=== PATIENT | female | born 1965 | race Hispanic/Latino ===

== ENCOUNTER 2025-05-18 18:18 | Emergency (ER) | payer SELFPAY ==
[2025-05-18] MEDS ORDERED: HYDROcodone/Acetaminophen 5/325 mg Tablet ONE (19:24)
[2025-05-18] MEDS ORDERED: Ondansetron PF 4 MG/2 ML Vial ONE (19:33)
[2025-05-18] MEDS ORDERED: Lidocaine 1% w/Epinephrine 1:100K 20 ML VIAL ONE (20:47)
[2025-05-18] MEDS ORDERED: Lidocaine/Transparent Dressing 1 EACH KIT ONE (21:03)
[2025-05-18] MEDS ORDERED: Boostrix 0.5 ML (Tdap) VIAL (>/=7 yrs of age) ONE (22:14)
== END 2025-05-18 23:00 | disposition home or self-care (01) ==
LOC: ERS 18:18
DX: S92.321A Displaced fracture of second metatarsal bone, right foot, initial encounter for closed fracture (principal); S92.332A Displaced fracture of third metatarsal bone, left foot, initial encounter for closed fracture; S01.111A Laceration without foreign body of right eyelid and periocular area, initial encounter; M25.531 Pain in right wrist; I10 Essential (primary) hypertension; W01.0XXA Fall on same level from slipping, tripping and stumbling without subsequent striking against object, initial encounter; Z23 Encounter for immunization; Z79.899 Other long term (current) drug therapy
CPT/HCPCS: 12013; 29105; 29515; 70450; 70486; 72125; 90471; 90715; 96374; 96375; J2270; J2405

== ENCOUNTER 2025-05-30 13:18 | Emergency (ER) | payer SELFPAY | END 2025-05-30 13:51 | disposition home or self-care (01) | LOC: ERS 13:18 | DX: S01.111D Laceration without foreign body of right eyelid and periocular area, subsequent encounter (principal); I10 Essential (primary) hypertension; X58.XXXD Exposure to other specified factors, subsequent encounter ==